=== PATIENT | female | born 1935 | race Caucasian/White ===

== ENCOUNTER 2016-08-13 13:40 | Emergency (ER) | payer MEDICARE ==
[2016-08-13 13:58] LABS: BASOPHIL 0.2 % (0-2); EOSINOPHIL 3.4 % (0-7); HCT 41.2 % (37.0-47.0); HGB 13.9 g/dl (12.5-16.0); LYMPHOCYTE 23.2 % (15-48); MCH 29.4 pg (25.0-31.0); MCHC 33.7 g/dL (32.0-36.0); MCV 87.1 fL (78.0-100.0); MONOCYTE 13.6 % (0-12); MPV 8.6 fL (6.0-9.5); NEUTROPHIL 59.6 % (41-80); PLT 313 K/uL (150-400); RBC 4.73 M/uL (4.20-5.40); RDW 14.3 % (11.5-14.0); WBC 5.6 K/uL (4.0-10.5)
[2016-08-13 14:10] LABS: INR 0.97 (0.9-1.2); PROTHROMBIN TIME 12.5 SECONDS (11.7-14.0); PTT 27.8 SECONDS (23.2-31.4)
[2016-08-13 14:18] LABS: BILIRUBIN - TOTAL 0.2 mg/dL (0.1-1.0); CREATININE 0.6 mg/dL (0.5-1.0); GLOBULIN (CALCULATION) 2.8 g/dL (2.2-4.2); MAGNESIUM 1.83 mg/dL (1.40-2.10); TOTAL PROTEIN 6.8 g/dL (6.4-8.3)
[2016-08-13 14:21] LABS: CKMB 1.65 ng/mL (0.97-4.94); MYOGLOBIN 21 ng/mL (26-65); PRO-BNP 205 pg/mL (0-450); TROPONIN T < 0.010 ng/mL
== END 2016-08-13 14:52 | disposition home or self-care (01) ==
LOC: FER 13:40
PROVIDERS: Emergency Medicine
DX: K29.70 Gastritis, unspecified, without bleeding (principal); Z82.49 Family history of ischemic heart disease and other diseases of the circulatory system; Z91.013 Allergy to seafood; Z79.82 Long term (current) use of aspirin
CPT/HCPCS: 36415; 71010; 80053; 82550; 82553; 83735; 83874; 83880; 84484; 85025; 85379; 85610; 85730; 93005